=== PATIENT | male | born 1980 | race Native Hawaiian/Other Pacific Islander ===

== ENCOUNTER 2016-06-18 20:22 | Emergency (ER) | payer OTHER ==
[~2016-06-18] VITALS: Ht 172.7 cm; Wt 68.0 kg
[2016-06-18 20:36] VITALS: TEMP 98.2
[2016-06-18 21:32] LABS: PLATELET COUNT 225 K/uL (142-355)
[2016-06-18 21:39] LABS: SODIUM 132 mmol/L (136-145)
[2016-06-19 01:33] VITALS: BP 128/82
== END 2016-06-19 01:33 | disposition home or self-care (01) ==
LOC: ED 20:22
DX: R11.2 Nausea with vomiting, unspecified (principal); R19.7 Diarrhea, unspecified
CPT/HCPCS: 36415; 80053; 82150; 83690; 85027; 96361; 96374; 99284; J1885; Q9963

== ENCOUNTER 2017-12-22 17:54 | Emergency (ER) | payer OTHER ==
[~2017-12-22] VITALS: Ht 172.7 cm; Wt 63.5 kg
[2017-12-22 18:00] VITALS: TEMP 97.9
[2017-12-22 19:00] VITALS: BP 116/68
[2017-12-22 19:09] LABS: PLATELET COUNT 155 K/uL (142-355)
[2017-12-22 19:22] LABS: POTASSIUM 3.7 mmol/L (3.6-5.2)
== END 2017-12-22 19:50 | disposition home or self-care (01) ==
LOC: ED 17:54
PROVIDERS: Family Medicine
DX: R07.89 Other chest pain (principal); W50.0XXA Accidental hit or strike by another person, initial encounter; Y92.89 Other specified places as the place of occurrence of the external cause
CPT/HCPCS: 36415; 80053; 82550; 84484; 85027; 93005; 96374; 99284; J1885; Q9963

== ENCOUNTER 2022-10-21 09:54 | Emergency (ER) | payer BC ==
[~2022-10-21] VITALS: Ht 172.7 cm; Wt 77.1 kg
[2022-10-21 10:08] VITALS: TEMP 98.2
[2022-10-21 10:54] LABS: PLATELET COUNT 133 K/uL (142-355); POTASSIUM 3.6 mmol/L (3.6-5.2); SODIUM 138 mmol/L (136-145)
[2022-10-21 12:05] VITALS: BP 114/69
== END 2022-10-21 12:05 | disposition home or self-care (01) ==
LOC: ED 09:54
PROVIDERS: Emergency Medicine Emergency Medical Services
DX: R09.1 Pleurisy (principal); R19.7 Diarrhea, unspecified; F17.210 Nicotine dependence, cigarettes, uncomplicated
CPT/HCPCS: 80048; 84484; 85027; 93005; 99284